=== PATIENT | female | born 1970 | race Asian ===

== ENCOUNTER 2022-05-28 11:53 | Emergency (ER) | payer OTHER ==
[~2022-05-28] VITALS: Ht 157.5 cm; Wt 47.7 kg
[2022-05-28] MEDS ORDERED: AMLO-257 PO (12:04)
[2022-05-28] MEDS ORDERED: ATOR40TA71 PO (12:04)
[2022-05-28] MEDS ORDERED: METF-444 PO (12:04)
[2022-05-28] MEDS ORDERED: AMLO5TAB66 PO (12:04)
[2022-05-28] MEDS ORDERED: ACETAMINOPHEN 325 MG TABLET PO ONE (13:00)
[2022-05-28] MEDS ORDERED: GLIP5TAB11 PO (13:03)
[2022-05-28] MEDS ORDERED: AMLO10TA55 PO (13:03)
[2022-05-28 13:04] VITALS: BP 155/99
== END 2022-05-28 15:19 | disposition home or self-care (01) ==
LOC: EMS 11:53
DX: S00.93XA Contusion of unspecified part of head, initial encounter (principal); S50.01XA Contusion of right elbow, initial encounter; S70.01XA Contusion of right hip, initial encounter; E11.9 Type 2 diabetes mellitus without complications; E78.00 Pure hypercholesterolemia, unspecified; I10 Essential (primary) hypertension; X58.XXXA Exposure to other specified factors, initial encounter; Y93.89 Activity, other specified; Y92.89 Other specified places as the place of occurrence of the external cause; Y99.8 Other external cause status
CPT/HCPCS: 70450; 73502; 82962; 99284